=== PATIENT | female | born 1995 | race Caucasian/White ===

== ENCOUNTER 2017-10-30 09:19 | Emergency (ER) | payer OTHER ==
[~2017-10-30] VITALS: Ht 167.6 cm; Wt 77.1 kg
--- NOTE | 2017-10-30 09:49 | ER Report ---
History and Physical Time Seen By MD: 09:49 Hx. of Stated Complaint: color is good, spoke with pt as rooms are full. Pt appears nad, no sob,n/s or d. She states she is having her period. She will attempt a urine collection while she is waiting HPI/ROS CHIEF COMPLAINT: Heavy vaginal bleeding HISTORY OF PRESENT ILLNESS: Patient is a 22-year-old female who is a Ab1 who presents to the emergency department with complaint of 2-3 months of irregular and heavy vaginal bleeding patient has Nexplanon for contraception which has been in place for the past 2 years. She reports that from the 1st year she had essentially no periods and cramping was well-controlled. The past 4 -5 months she steadily had increasing cramping and increasing frequency of vaginal bleeding. She reports that she is sexually active with 1 partner over the past 3 years. She denies any purulent vaginal discharge. She denies dysuria she states that she's been soaking a super absorbent tampons every 30-60 minutes since last evening she is also complaining of lower pelvic cramping. She denies any fevers or chills she denies chest pain or shortness of breath. REVIEW OF SYSTEMS: Respiratory: No cough, no dyspnea. Cardiovascular: No chest pain, no palpitations. Gastrointestinal: No vomiting, no abdominal pain. Musculoskeletal: No back pain. : Heavy menstrual cramping and vaginal bleeding Allergies: Coded Allergies: No Known Drug Allergies (Unverified , 10/30/17) Home Meds Active Scripts Estradiol (ESTRACE) 1 Mg Tablet, 1 MG PO QDAY, #21 TAB 0 Refills Prov:LAYLA BAUMANN MD 10/30/17 Reported Medications Etonogestrel (NEXPLANON) 68 Mg Implant, 68 MG SQ DIRECTED, IMPLANT 10/30/17 Past Medical/Surgical History Family history for ovarian cysts Constitutional Vital Sign - Last 24 Hours 10/30/17 10/30/17 10/30/17 10/30/17 09:46 09:47 09:49 10:00 Temp 99.0 Pulse 75 71 Resp 20 B/P (MAP) 132/87 132/87 (102) 112/80 (91) Pulse Ox 97 98 O2 Delivery Room Air 10/30/17 10/30/17 10/30/17 10/30/17 10:19 10:30 10:58 11:00 Pulse 74 B/P (MAP) 114/71 (85) 126/83 (97) 107/86 (93) Pulse Ox 97 10/30/17 10/30/17 10/30/17 10/30/17 11:05 11:30 11:35 12:00 Pulse 140 72 B/P (MAP) 113/70 (84) 115/79 (91) Pulse Ox 94 86 10/30/17 10/30/17 10/30/17 10/30/17 12:05 12:30 12:35 13:00 Pulse 132 B/P (MAP) 111/72 (85) 112/83 (93) Pulse Ox 90 100 Physical Exam General Appearance: The patient is alert, has no immediate need for airway protection and no current signs of toxicity. [ ] Eyes: Pupils equal and round no injection. Respiratory: Chest is non tender, lungs are clear to auscultation. Cardiac: regular rate and rhythm [ ] Gastrointestinal: Abdomen is soft and non tender, no masses, bowel sounds normal. Musculoskeletal: Neck: Neck is supple and non tender. Extremities have full range of motion and are non tender. Skin: No rashes or lesions. exam: Entire complete speculum vaginal exam done with telephonic case manager. Patient had normal appearance of the introitus. Speculum exam revealed a pink cervix with some oozing of blood from the cervical os. There is some left adnexal fullness and mild discomfort to palpation. Right adnexa was normal. Cultures were obtained for GC chlamydia. Medical Decision Making Data Points Result Diagram: 10/30/17 1029 10/30/17 1029 Laboratory Hematology Test 10/30/17 09:30 10/30/17 10:29 10/30/17 10:56 Urine Color Yellow Urine Clarity Clear Urine pH 5.0 pH (4.8-9.5) Urine Specific [place] 1.025 Urine Protein Negative mg/dL (NEGATIVE) Urine Glucose (UA) Negative mg/dL (NEGATIVE) Urine Ketones Negative mg/dL (NEGATIVE) Urine Blood Small (NEGATIVE) Urine Nitrite Negative (NEGATIVE) Urine Bilirubin Negative (NEGATIVE) Urine Urobilinogen Negative mg/dL (0.2-1.9) Urine Leukocyte Esterase Negative (NEGATIVE) Urine RBC 3 /HPF (0-2/HPF) Urine WBC <1 /HPF (0-5/HPF) Urine Squamous Epithelial Cells Few /LPF (</=FEW) Urine Transitional Epithelial Cells Few /LPF (NONE-FEW) Urine Bacteria Negative /HPF (NONE-FEW) Urine Mucus Few /HPF (NONE-FEW) Red Blood Count 5.02 M/uL (4.17-5.56) Mean Corpuscular Volume 89.9 fL (80.0-96.0) Mean Corpuscular Hemoglobin 31.7 pg (26.0-33.0) Mean Corpuscular Hemoglobin Concent 35.2 g/dL (32.0-36.0) Red Cell Distribution Width 12.3 % (11.5-14.5) Mean Platelet Volume 7.8 fL (7.2-11.1) Neutrophils (%) (Auto) 61.5 % (39.4-72.5) Lymphocytes (%) (Auto) 26.7 % (17.6-49.6) Monocytes (%) (Auto) 8.3 % (4.1-12.4) Eosinophils (%) (Auto) 2.5 % (0.4-6.7) Basophils (%) (Auto) 1.0 % (0.3-1.4) Nucleated RBC Relative Count (auto) 0.0 /100WBC Neutrophils # (Auto) 3.7 K/uL (2.0-7.4) Lymphocytes # (Auto) 1.6 K/uL (1.3-3.6) Monocytes # (Auto) 0.5 K/uL (0.3-1.0) Eosinophils # (Auto) 0.2 K/uL (0.0-0.5) Basophils # (Auto) 0.1 K/uL (0.0-0.1) Nucleated RBC Absolute Count (auto) 0.00 K/uL Sodium Level 138 mmol/L (137-145) Potassium Level 4.1 mmol/L (3.5-5.0) Chloride Level 103 mmol/L (98-107) Carbon Dioxide Level 23 mmol/L (22-31) Blood Urea Nitrogen 15 mg/dl (7-18) Creatinine 0.80 mg/dl (0.52-1.04) Glomerular Filtration Rate Calc > 60.0 Random Glucose 90 mg/dl (75-110) Calcium Level 9.4 mg/dl (8.4-10.2) Thyroid Stimulating Hormone (TSH) 1.70 uIU/ml (0.46-4.68) Chemistry Test 10/30/17 09:30 10/30/17 10:29 10/30/17 10:56 Urine Color Yellow Urine Clarity Clear Urine pH 5.0 pH (4.8-9.5) Urine Specific [place] 1.025 Urine Protein Negative mg/dL (NEGATIVE) Urine Glucose (UA) Negative mg/dL (NEGATIVE) Urine Ketones Negative mg/dL (NEGATIVE) Urine Blood Small (NEGATIVE) Urine Nitrite Negative (NEGATIVE) Urine Bilirubin Negative (NEGATIVE) Urine Urobilinogen Negative mg/dL (0.2-1.9) Urine Leukocyte Esterase Negative (NEGATIVE) Urine RBC 3 /HPF (0-2/HPF) Urine WBC <1 /HPF (0-5/HPF) Urine Squamous Epithelial Cells Few /LPF (</=FEW) Urine Transitional Epithelial Cells Few /LPF (NONE-FEW) Urine Bacteria Negative /HPF (NONE-FEW) Urine Mucus Few /HPF (NONE-FEW) White Blood Count 6.0 k/uL (4.5-11.0) Red Blood Count 5.02 M/uL (4.17-5.56) Hemoglobin 15.9 g/dL (12.0-16.0) Hematocrit 45.2 % (34.0-47.0) Mean Corpuscular Volume 89.9 fL (80.0-96.0) Mean Corpuscular Hemoglobin 31.7 pg (26.0-33.0) Mean Corpuscular Hemoglobin Concent 35.2 g/dL (32.0-36.0) Red Cell Distribution Width 12.3 % (11.5-14.5) Platelet Count 283 K/uL (150-450) Mean Platelet Volume 7.8 fL (7.2-11.1) Neutrophils (%) (Auto) 61.5 % (39.4-72.5) Lymphocytes (%) (Auto) 26.7 % (17.6-49.6) Monocytes (%) (Auto) 8.3 % (4.1-12.4) Eosinophils (%) (Auto) 2.5 % (0.4-6.7) Basophils (%) (Auto) 1.0 % (0.3-1.4) Nucleated RBC Relative Count (auto) 0.0 /100WBC Neutrophils # (Auto) 3.7 K/uL (2.0-7.4) Lymphocytes # (Auto) 1.6 K/uL (1.3-3.6) Monocytes # (Auto) 0.5 K/uL (0.3-1.0) Eosinophils # (Auto) 0.2 K/uL (0.0-0.5) Basophils # (Auto) 0.1 K/uL (0.0-0.1) Nucleated RBC Absolute Count (auto) 0.00 K/uL Glomerular Filtration Rate Calc > 60.0 Calcium Level 9.4 mg/dl (8.4-10.2) Thyroid Stimulating Hormone (TSH) 1.70 uIU/ml (0.46-4.68) Urinalysis Test 10/30/17 09:30 Urine Color Yellow Urine Clarity Clear Urine pH 5.0 pH (4.8-9.5) Urine Specific [place] 1.025 Urine Protein Negative mg/dL (NEGATIVE) Urine Glucose (UA) Negative mg/dL (NEGATIVE) Urine Ketones Negative mg/dL (NEGATIVE) Urine Blood Small (NEGATIVE) Urine Nitrite Negative (NEGATIVE) Urine Bilirubin Negative (NEGATIVE) Urine Urobilinogen Negative mg/dL (0.2-1.9) Urine Leukocyte Esterase Negative (NEGATIVE) Urine RBC 3 /HPF (0-2/HPF) Urine WBC <1 /HPF (0-5/HPF) Urine Squamous Epithelial Cells Few /LPF (</=FEW) Urine Transitional Epithelial Cells Few /LPF (NONE-FEW) Urine Bacteria Negative /HPF (NONE-FEW) Urine Mucus Few /HPF (NONE-FEW) EKG/Imaging [place] [facility] [place] NAME: Maryanne Hall : 1995 MR: [id number] V: [id number] EXAM DATE: ORDERING PHYSICIAN: LAYLA BAUMANN TECHNOLOGIST: Location: [facility] Patient: Maryanne Hall : 1995 Visit/Account:[id number] Date of Sevice: 10/30/2017 TRANSVAGINAL NON-OB HISTORY: Excessive vaginal bleeding x2 days TECHNIQUE: Transvaginal ultrasound pelvis. COMPARISON: None. FINDINGS: Uterus: ; 6.3 cm length x 3.1 cm AP x 3.2 cm transverse. Myometrium: Hypervascular. Endometrium: Unremarkable; double thickness 3 mm. Cervix: Grossly negative. Ovaries: Right - 2.8 x 1.4 x 2.4 cm Left - 4.5 x 3.6 x 4.4 cm. There is a 5.5 cm simple cyst in the left ovary Blood flow is documented in each ovary by duplex Doppler ultrasound. Adnexa: Prominent pelvic vessels in both adnexa. Free pelvic fluid: Trace. IMPRESSION: Hypervascular myometrium and prominent adnexal vessels bilaterally 5.5 cm simple left ovarian cyst Report Dictated By: Kala Wagner MD at 10/30/2017 12:14 PM Report E-Signed By: Kala Wagner MD at 10/30/2017 12:18 PM WSN:[email or web address] ED Course/Re-evaluation ED Course 10/30/2017 12:40:22 pm patient with medical menorrhagia. Later this time will be bloodwork checking CBC electrolytes we'll perform a pelvic exam and transvaginal non-OB ultrasound. 10/30/2017 12:50:[address] Hankins who is the MAINTENANCE DISPATCHER called to the ER today history physical exam all pertinent lab data ED course and ultrasound findings were discussed. We both feel that the medical menorrhagia secondary to her subdermal contraception. Dr. Hankins recommended a 3 week course of 1 mg of estradiol per day to help with the bleeding. Patient was counseled on side effects. Patient further counseled to schedule follow-up appointment with MAINTENANCE DISPATCHER Decision to Disposition Date: Oct 30, 2017 Decision to Disposition Time: 12:51 Depart Departure Latest Vital Signs Vital Signs Date Time Temp Pulse Resp B/P (MAP) Pulse Ox O2 Delivery O2 Flow Rate FiO2 10/30/17 13:00 112/83 (93) 10/30/17 12:35 132 100 10/30/17 09:46 99.0 20 Room Air Impression: Primary Impression: Menometrorrhagia Condition: Improved Disposition: HOME OR SELF-CARE Referrals: SANDRA HERBERT MD 2 Weeks New Scripts Naproxen (NAPROXEN) 375 Mg Tablet 375 MG PO TID Y for PAIN, #30 TAB 0 Refills Prov: LAYLA BAUMANN MD 10/31/17 Ondansetron Hcl (ZOFRAN) 4 Mg Tablet 4 MG PO Q8H for Nausea, #15 TAB 0 Refills Prov: LAYLA BAUMANN MD 10/31/17 Estradiol (ESTRACE) 1 Mg Tablet 1 MG PO QDAY, #21 TAB 0 Refills Prov: LAYLA BAUMANN MD 10/30/17 Departure Forms: ER Transition Record, Medications Reconciliation, Off Work/ School Form, School or Work Release?: School Number of days to be released: 1 Patient Portal Information Patient Instructions: Menorrhagia (ED) Additional Instructions: Is recommended to schedule a follow-up appointment with Dr. Sandra Hnakins MAINTENANCE DISPATCHER for follow-up in the next 2-4 weeks for your vaginal bleeding LAYLA BAUMANN MD Oct 30, 2017 09:49
[2017-10-30] MEDS ORDERED: ETON68IM SQ (09:52)
[2017-10-30] MEDS ORDERED: KETOROLAC 15 MG/ML VIAL IVP ONE (10:15)
[2017-10-30 10:51] LABS: PLATELET COUNT, AUTOMATED 283 K/uL (150-450)
--- NOTE | 2017-10-30 12:22 | RADIOLOGY IMAGING REPORT ---
FACILITY: [facility] [place] PATIENT NAME: Maryanne Hall : 1995 MR: [id number] V: [id number] EXAM DATE: ORDERING PHYSICIAN: LAYLA BAUMANN TECHNOLOGIST: Location: [facility] Patient: Maryanne Hall : 1995 Visit/Account:[id number] Date of Sevice: 10/30/2017 TRANSVAGINAL NON-OB HISTORY: Excessive vaginal bleeding x2 days TECHNIQUE: Transvaginal ultrasound pelvis. COMPARISON: None. FINDINGS: Uterus: ; 6.3 cm length x 3.1 cm AP x 3.2 cm transverse. Myometrium: Hypervascular. Endometrium: Unremarkable; double thickness 3 mm. Cervix: Grossly negative. Ovaries: Right - 2.8 x 1.4 x 2.4 cm Left - 4.5 x 3.6 x 4.4 cm. There is a 5.5 cm simple cyst in the left ovary Blood flow is documented in each ovary by duplex Doppler ultrasound. Adnexa: Prominent pelvic vessels in both adnexa. Free pelvic fluid: Trace. IMPRESSION: Hypervascular myometrium and prominent adnexal vessels bilaterally 5.5 cm simple left ovarian cyst Report Dictated By: Kala Wagner MD at 10/30/2017 12:14 PM Report E-Signed By: Kala Wagner MD at 10/30/2017 12:18 PM WSN:[email or web address]
[2017-10-30] MEDS ORDERED: ESTR-35 PO (12:55)
[2017-10-30 13:00] VITALS: BP 112/83
[2017-10-31] MEDS ORDERED: ONDA4TAB97 PO (09:36)
[2017-10-31] MEDS ORDERED: NAPR375T44 PO (09:36)
== END 2017-10-30 13:02 | disposition home or self-care (01) ==
LOC: ER 09:21
DX: N92.1 Excessive and frequent menstruation with irregular cycle (principal)
CPT/HCPCS: 76830; 81001; 84443; 85025; 87491; 87591; 96374; 99284; J1885; 82310; 82374; 82435; 82565; 82947; 84132; 84295; 84520